=== PATIENT | male | born 1990 | race African-American/Black ===

== ENCOUNTER 2018-08-29 13:30 | Emergency (ER) | payer OTHER | END 2018-08-29 14:16 | disposition home or self-care (01) | LOC: EDH 13:30 | DX: K13.29 Other disturbances of oral epithelium, including tongue (principal); Z88.0 Allergy status to penicillin | CPT/HCPCS: 99281 ==

== ENCOUNTER 2019-08-22 10:30 | Emergency (ER) | payer OTHER ==
[2019-08-22] MEDS ORDERED: ACETAMINOPHEN 325 MG TAB ONE (10:59)
[2019-08-22] MEDS ORDERED: IPRATROPIUM/ALBUTEROL SULFATE 3 ML SOLUTION IH ONE (11:09)
[2019-08-22 11:43] LABS: RAPID GROUP A STREP NEGATIVE (NEGATIVE)
== END 2019-08-22 12:53 | disposition home or self-care (01) ==
LOC: EDH 10:30
DX: J09.X2 Influenza due to identified novel influenza A virus with other respiratory manifestations (principal); Z88.0 Allergy status to penicillin
CPT/HCPCS: 71046; 87804; 87880; 94640